=== PATIENT | male | born 1960 | race Caucasian/White ===

== ENCOUNTER 2018-12-31 05:31 | Emergency (ER) | payer SELFPAY ==
[~2018-12-31] VITALS: Ht 165.1 cm; Wt 73.6 kg
[2018-12-31 05:40] VITALS: Ht 165.1 cm; Wt 73.6 kg
[2018-12-31] MEDS ORDERED: KETOROLAC 15 MG INJ IV STA (06:36)
[2018-12-31] MEDS ORDERED: SOD CHLORIDE 0.9% 500 ML IV STA (06:36)
--- NOTE | 2018-12-31 06:43 | ERD ---
ER Documentation Chief Complaint Chief Complaint generalize body weakness/pain since 11 pm HPI This is a 58-year-old male with no reported past medical history is presenting with waxing and waning body pains over the last few weeks. The patient reports exercising more recently and having a soreness to his lower back. Beginning las night, he reports that the back pain became more moderate with radiation down the left leg. He describes an aching gnawing soreness down the left leg. He does not endorse any trauma or injury or heavy lifting. The patient also reports feeling generally unwell and fatigued. He reports having intermittent waxing and waning midsternal nonradiating chest discomfort. He feels like there is a pit in his chest with nausea but no vomiting. He also reports mild shortness of breath. He denies diaphoresis. He denies lightheadedness or dizziness. ROS All systems reviewed and are negative except as per history of present illness. Allergies Allergies: Coded Allergies: No Known Allergy (Unverified , 12/31/18) Physical Exam Vitals Vital Signs Date Temp Pulse Resp B/P (MAP) Pulse Ox O2 O2 Flow FiO2 Time Delivery Rate 12/31/18 85 20 172/89 99 Room Air 09:59 (116) 12/31/18 56 170/89 07:59 (116) 12/31/18 69 175/89 07:10 (117) 12/31/18 Nasal 2 06:38 Cannula 12/31/18 97.2 69 18 204/90 99 05:40 (128) Physical Exam Const: No apparent distress, well-developed, well-nourished Head: Normocephalic, Atraumatic Eyes: Normal Conjunctiva. Extraocular movements intact. Pupils equal, round and reactive to light ENT: Normal External Ears, Nose and Mouth. Neck: Full range of motion. No meningismus. Resp: Clear to auscultation bilaterally, No wheezes, rales or rhonchi Cardio: Regular rate and rhythm. No murmurs, rubs or gallops Abd: Soft, non tender, non distended. Normal bowel sounds Skin: No petechiae or rashes Back: No midline tenderness. Lumbar paraspinal tenderness evident on the left. No CVA tenderness Ext: No cyanosis, or edema Neur: Awake and alert, oriented 4. Cranial nerves intact. No facial droop. Normal strength, sensation and coordination. Psych: Normal Mood and Affect Result Diagram: 12/31/18 0643 12/31/18 0643 Results 24 hrs Laboratory Tests Test 12/31/18 06:43 12/31/18 07:00 White Blood Count 16.2 10^3/ul Red Blood Count 5.33 10^6/ul Hemoglobin 16.9 g/dl Hematocrit 49.5 % Mean Corpuscular Volume 92.9 fl Mean Corpuscular Hemoglobin 31.7 pg Mean Corpuscular Hemoglobin Concent 34.1 g/dl Red Cell Distribution Width 12.3 % Platelet Count 210 10^3/UL Mean Platelet Volume 12.4 fl Immature Granulocytes % 1.000 % Neutrophils % 83.0 % Lymphocytes % 11.6 % Monocytes % 3.8 % Eosinophils % 0.1 % Basophils % 0.5 % Nucleated Red Blood Cells % 0.0 /100WBC Immature Granulocytes # 0.160 10^3/ul Neutrophils # 13.5 10^3/ul Lymphocytes # 1.9 10^3/ul Monocytes # 0.6 10^3/ul Eosinophils # 0.0 10^3/ul Basophils # 0.1 10^3/ul Nucleated Red Blood Cells # 0.0 10^3/ul Prothrombin Time 13.0 Sec Prothrombin Time Ratio 1.0 INR International Normalized Ratio 0.97 Sodium Level 143 mmol/L Potassium Level 4.4 mmol/L Chloride Level 106 mmol/L Carbon Dioxide Level 28 mmol/L Anion Gap 9 Blood Urea Nitrogen 16 mg/dl Creatinine 0.91 mg/dl Est Glomerular Filtrat Rate mL/min > 60 mL/min Glucose Level 136 mg/dl Calcium Level 9.4 mg/dl Creatine Kinase 234 IU/L Troponin I < 0.012 ng/ml B-Type Natriuretic Peptide 110 PG/ML Urine Color GRACIELA Urine Clarity SLIGHTLY CLOUDY Urine pH 5.0 Urine Specific [place] 1.030 Urine Ketones NEGATIVE mg/dL Urine Nitrite NEGATIVE mg/dL Urine Bilirubin NEGATIVE mg/dL Urine Urobilinogen NEGATIVE mg/dL Urine Leukocyte Esterase NEGATIVE Morgan/ul Urine Microscopic RBC 1 /HPF Urine Microscopic WBC 1 /HPF Urine Mucus FEW /HPF Urine Hemoglobin NEGATIVE mg/dL Urine Glucose NEGATIVE mg/dL Urine Total Protein 2+ mg/dl Urine Opiates Screen Negative Urine Barbiturates Negative Urine Amphetamines Screen Negative Urine Benzodiazepines Screen Positive Urine Cocaine Screen Negative Urine Cannabinoids Negative Current Medications Medications Dose Sig/Christine Start Time Status Last (Trade) Ordered Route PRN Stop Time Admin Dose Reason Admin Sodium 500 ml @ Q1H STAT 12/31/18 DC 12/31/18 Chloride 500 mls/hr IV 06:36 07:00 12/31/18 07:35 Ketorolac 15 mg ONCE STAT 12/31/18 DC 12/31/18 Tromethamine IV 06:36 06:53 (Toradol) 12/31/18 06:38 Diazepam 5 mg ONCE ONCE 12/31/18 DC 12/31/18 (Valium) IV 07:00 06:53 12/31/18 07:01 Fentanyl 50 mcg ONCE ONCE 12/31/18 DC 12/31/18 (Sublimaze) IV 07:30 07:19 12/31/18 07:31 Procedures/MDM MDM The patient's presentation warrants further investigation. Previous medical records, if available, were reviewed. LABS The patient's laboratory testing was obtained and reviewed. No emergent treatment was required unless described below. CBC: Leukocytosis, concerning for possible infection. No E/o anemia or thrombocytopenia Chemistry: No E/o severe acidosis or alkalosis or renal failure or diabetic ketoacidosis PT/INR: No E/o significant coagulopathy Troponin: No E/o acute ischemia CK: Mildly elevated, but no rhadbomyolysis BNP: No E/o heart failure Urine: No E/o acute infection or hematuria Tox: Positive for benzodiazepines, which were given in the ER EKG EKG read by me: Rate/Rhythm: Regular rate and rhythm at a rate of 61 bpm Intervals: Normal Burket: Normal Impression: No evidence of acute ischemia or arrhythmia IMAGING Imaging and Radiology interpretation reviewed. CXR FINDINGS: The heart and mediastinum are within normal limits. The pulmonary vasculature are unremarkable. The aorta demonstrates atherosclerotic calcifications. There is no lung consolidation, pleural effusion or pneumothorax. Degenerative changes are seen within the thoracic spine and shoulders. There is no acute osseous abnormality. IMPRESSION: No acute disease. Electronically viewed and signed by Sierra Reynoso MD, on 12/31/2018 07:35 TREATMENT/DISPOSITION The patient presents for multiple complaints. He reports general fatigue with body aches. He endorses nonspecific chest pain which does warrant a cardiac work-up. The patient's EKG and troponin are reassuring. I have low suspicion for acute coronary syndrome. I do not see evidence of any emergent cardiac arrhy thmia, which includes but is not limited to heart block, Brugada syndrome or WPW. The patient has no heart murmurs or rales. There is no evidence of cardiomegaly on exam or chest xray. I have low suspicion for hypertrophic cardiomyopathy. I do not see evidence of CHF. The patient does not endorse any chest or pleuritic pain. The history is negative for bleeding or clotting disorders. The patient has not been involved in any recent prolonged trips or surgeries or hospitalizations. The patient has no calf tenderness or swelling. I have decreased suspicion for PE as the etiology of symptoms. The patient has a reassuring physical exam. The patient is not clinically orthostatic. That said, the patient's blood pressure was quite elevated. I do suspect some component of this to be related to his mild distress related to his generalized pain. He was treated with Toradol, Valium and ultimately a dose of fentanyl with improvement of his pain as well as his blood pressure. The patient does not carry diagnosis of hypertension, but I do feel that the patient requires outpatient reassessment and possible management. The patient's general myalgias and fatigue could also be related to an inf ectious etiology. I do not see evidence of a bacterial etiology. I have higher suspicion for the possibility of a viral etiology which is likely to be self- limited. The patient is afebrile with unremarkable vital signs. He does not meet criteria for a systemic inflammatory response syndrome. The patient is not septic and does not require a full septic work-up. I do not feel that the patient would benefit from antibiotics at this time. The patient was given IV fluids in the emergency department. The patient is not dizzy. I have decreased suspicion for vertigo. The patient has no signs of emergent or symptomatic anemia. The patient does not have any emergent electrolyte or metabolic emergencies. I have decrease suspicion for a thyroid disorder. The patient is not toxic appearing. I have decreased suspicion for an infectious etiology of symptoms. The patient has no focal deficits. The neurologic exam is reassuring. I have decreased suspicion for cerebral ischemia. There was no trauma or injury. There is no personal or family history of cerebral aneurysm. I have decreased suspi cion for SAH or other ICH. I have low suspicion for temporal arteritis, cavernous venous thrombosis, subdural hematoma, epidural hematoma, meningitis. He also endorses symptoms concerning for sciatic low back pain. There is no history of trauma or injury. There is no evidence of emergent posttraumatic injury. Patient has no step-offs or deformities. I have low suspicion for acute fracture or listhesis. I do not suspect retroperitoneal bleeding. The patient is ambulatory and mobile without difficulty. The patient does not have any saddle anesthesia or any focal deficits. The patient has not been incontinent of urine or stool. The patient has not had any retention of urine or stool. I have low suspicion for spinal cord injury. There is no evidence of sciatica. The patient denies any abdominal pain. The patient does not have any palpable pulsatile masses in the abdomen. I have low suspicion for AAA or aortic aneurysm rupture or dissection. The patient does not have any flank tenderness. The patient does not have any urinary complaints or gross hematuria. I have low suspicion for nephrolithiasis as the etiology of symptoms. The patient does not have any left upper quadrant tenderness radiating to the back. I have low suspicion for pancreatitis. The patient does not have a history of IV drug use. The patient is afebrile. The patient does not have symptoms consistent with an epidural abscess or other infectious etiologies. There are no overlying skin changes. There is no evidence of cellulitis or abscess or another soft tissue infection. DISCHARGE Upon reevaluation of the patient, symptoms have improved. No emergent diagnoses were identified. At this time, I feel that the patient stable for discharge. The patient was instructed to follow-up with a primary care physician in 1-3 days. The patient will be given strict precautions with which to return to the emergency department. Prescriptions: Ibuprofen, Flexeril The patient's blood pressure was elevated at greater than 120/80 while in the emergency department. The patient was otherwise stable with no evidence of hypertensive urgency or emergency. The patient does not require admission for b lood pressure control. I have discussed with the patient the risks of hypertension. I have instructed the patient to return to the ER for any new or worsening symptoms including chest pain, shortness of breath, headache, blurred vision, confusion, nausea, vomiting or LOC. I have advised the patient to follow up with the primary care physician for outpatient monitoring and treatment for hypertension in 1-3 days. Disclaimer: Inadvertent spelling and grammatical errors are likely due to EHR/dictation software use and do not reflect on the overall quality of patient care. Note that the electronic time recorded on this note does not necessarily reflect the actual time of the patient encounter. Departure Diagnosis: Primary Impression: Myalgia Additional Impressions: Low back pain Chronicity: acute Back pain laterality: midline Sciatica presence: with sciatica Sciatica laterality: sciatica of left side Qualified Codes: M54.42 - Lumbago with sciatica, left side Nonspecific chest pain Fatigue Fatigue type: unspecified Qualified Codes: R53.83 - Other fatigue Leukocytosis Leukocytosis type: unspecified Qualified Codes: D72.829 - Elevated white blood cell count, unspecified Condition: Stable Patient Instructions: Back Pain W/ Sciatica, Causes of Lumbar (Low Back) Pain, Chest Pain, Uncertain Cause, Myalgias Additional Instructions: Thank you for for coming to [facility] for your care today. Please ask your nurse or provider if you have questions about your care today and do not leave until all your questions have been answered. Please use any medications given as directed and follow-up with your doctor (or the doctor you were referred to) in the next 1-3 days. If you do not have a primary care doctor you may follow up at the [facility] or [facility] (listed below). You may also use motrin and tylenol as needed for fever and/or pain unless instructed otherwise by your provider or nurse. Indications for more urgent follow-up have been discussed, but you may return to the Emergency Department at ANY time for any worrisome or worsening symptoms. If you have abdominal pain, please know that no test or exam you received is perfect and you should follow up within 8 hours for continued pain. If you had any imaging studies today, such as an X-Ray or CT Scan, these studies will be reviewed later by a radiologist. You will be called if there are important findings that were not identified today, so make sure the contact information you provided at registration is correct. If you received any narcotic pain control medicine today, such as Vicodin, Morphine or Dilaudid, your coordination and judgment may be affected for a number of hours. Please do not drive or operate heavy machinery, and you may want someone to assist you at home. If you were given a prescription for narcotic medication, be aware that it is very addictive- use sparingly and only if necessary. PLEASE SEEK FURTHER EVALUATION AND MANAGEMENT AT YOUR DOCTORS OFFICE WITHIN THE NEXT 1-3 DAYS. IT IS YOUR RESPONSIBILITY TO MAKE AN APPOINTMENT FOR FOLOW-UP CARE. IF YOU HAVE A PRIMARY DOCTOR, PLEASE CALL THEIR OFFICE TO SCHEDULE AN APPOINTMENT FOR FOLLOW UP. IF YOU DO NOT HAVE A PRIMARY DOCTOR YOU CAN CALL OUR PHYSICIAN REFERRAL HOTLINE AT IF YOU CAN NOT AFFORD TO SEE A PHYSICIAN YOU CAN CHOSE FROM THE FOLLOWING [facility] CLINICS: [facility] [address] [facility] [address] [facility]. [facility] [address] [facility] [address] [facility] [address]. [facility]. [address] MARTINA SAVAGE MD Dec 31, 2018 06:43
[2018-12-31] MEDS ORDERED: DIAZEPAM 5 MG/ML SYG IV ONE (07:00)
[2018-12-31] MEDS ORDERED: FENTAnyl 50 MCG/ML VIAL IV ONE (07:30)
[2018-12-31] MEDS ORDERED: CYCL5TAB PO (10:35)
[2018-12-31] MEDS ORDERED: IBUP-1542 PO (10:35)
[2018-12-31 11:00] VITALS: BP 162/87; PULSE 76; RESP 19
[2018-12-31] MEDS ORDERED: OXYCODONE/ACETAMINOPHEN (5/325) TAB PO ONE (11:00)
== END 2018-12-31 11:07 | disposition home or self-care (01) ==
LOC: E/R 05:31
DX: M54.42 Lumbago with sciatica, left side (principal); R07.9 Chest pain, unspecified; R53.83 Other fatigue; D72.829 Elevated white blood cell count, unspecified
CPT/HCPCS: 36415; 71045; 80048; 80307; 81001; 82550; 83880; 84484; 85025; 85610; 93005; 96374; 96375; 99285; J1885; J3010; J3360; J7040